=== PATIENT | female | born 1985 | race Caucasian/White ===

== ENCOUNTER 2017-04-11 16:12 | Emergency (ER) | payer BC ==
[2017-04-11 16:25] VITALS: BP 132/75
[2017-04-11] MEDS ORDERED: Albuterol 2.5 MG/3 ML NEB.SOL* (0.083%) INH ONE (16:42)
[2017-04-11] MEDS ORDERED: Ipratropium 0.5MG/2.5ML NEB* 0.5 MG/2.5 ML NEB.SOLN INH ONE (16:42)
[2017-04-11] MEDS ORDERED: predniSONE TAB* 20 MG PO ONE (16:43)
--- NOTE | 2017-04-11 17:25 | UC ---
Respiratory Complaint HPI - HPI Summary HPI Summary: 32 yo femalw with cough/wheezing x one month no f/c no n/v no myalgias - History of Current Complaint Chief Complaint: UCGeneralIllness Stated Complaint: COUGH,ASTHMA Time Seen by Provider: 04/11/17 16:38 Hx Last Menstrual Period: now Onset/Duration: Gradual Onset, Lasting Weeks Timing: Constant Severity Initially: Mild Severity Currently: Moderate Pain Intensity: 0 Pain Scale Used: 0-10 Numeric Character: Cough: Nonproductive Aggravating Factors: Nothing Alleviating Factors: Nothing Associated Signs And Symptoms: Positive: Wheezing - Allergies/Home Medications Allergies/Adverse Reactions: Allergies Allergy/AdvReac Type Severity Reaction Status Date / Time No Known Allergies Allergy Verified 04/11/17 16:25 Home Medications: Home Medications Albuterol 2.5MG/3ML (0.083%)* [Ventolin 2.5 MG/3 ML NEB.AMTEO*] 2.5 mg PO Q4H PRN 04/11/17 [History Confirmed 04/11/17] Albuterol HFA INHALER* [Ventolin HFA Inhaler*] 1 puff PO Q4H PRN 04/11/17 [ History Confirmed 04/11/17] Budesonide/Formote 80/4.5(NF) [Symbicort 80/4.5 (NF)] 1 aer PO Q6H PRN 04/11/17 [History Confirmed 04/11/17] PMH/Surg Hx/FS Hx/Imm Hx Previously Healthy: Yes Respiratory History: Asthma, Bronchitis, Pneumonia - Surgical History Surgical History: None - Family History Known Family History: Positive: Hypertension - Social History Alcohol Use: Occasionally Substance Use Type: None Smoking Status (MU): Never Smoked Tobacco Review of Systems Constitutional: Negative Skin: Negative Eyes: Negative ENT: Nasal Discharge, Sinus Congestion Respiratory: Shortness Of Breath, Cough Cardiovascular: Negative Gastrointestinal: Negative Genitourinary: Negative Motor: Negative Neurovascular: Negative Musculoskeletal: Negative Neurological: Negative Psychological: Negative Is Patient Immunocompromised?: No All Other Systems Reviewed And Are Negative: Yes Physical Exam Triage Information Reviewed: Yes Appearance: Well-Appearing, No Pain Distress, Well-Nourished Vital Signs: Initial Vital Signs Temp 99.3 F 04/11/17 16:14 Pulse 80 04/11/17 16:14 Resp 20 04/11/17 16:14 BP 132/75 04/11/17 16:14 Pulse Ox 100 04/11/17 16:14 Vital Signs Reviewed: Yes Eyes: Positive: Conjunctiva Clear ENT: Positive: Hearing grossly normal, TMs normal, Sinus tenderness. Negative: Nasal congestion, Nasal drainage, Tonsillar swelling, Tonsillar exudate, Trismus , Muffled voice, Hoarse voice, Uvula midline Neck: Positive: Supple, Nontender, No Lymphadenopathy Respiratory: Positive: No respiratory distress, No accessory muscle use, Wheezing Musculoskeletal: Positive: ROM Intact, No Edema Neurological: Positive: Alert Psychological Exam: Normal Skin Exam: Normal Diagnostic Evaluation - Laboratory O2 Sat by Pulse Oximetry: 100 - normal/not hypoxic Re-Evaluation - Re-Evaluation First Eval Re-Evaluation Time: 17:33 Change: Improved - lungs clear Respiratory Course/Dx - Differential Dx/Diagnosis Provider Diagnoses: acute bronchitis with bronchospasm Discharge - Discharge Plan Condition: Stable Disposition: HOME Prescriptions: Albuterol 2.5MG/3ML (0.083%)* [Ventolin 2.5 MG/3 ML NEB.MATEO*] 2.5 mg INH QID PRN #1 neb.mateo PRN Reason: Wheezing Albuterol HFA INHALER* [Ventolin HFA Inhaler*] 2 puff INH QID #1 mdi Amoxicillin/Clavulanate TAB* [Augmentin TAB 875*] 875 mg PO BID #14 tab Budesonide/Formote 80/4.5(NF) [Symbicort 80/4.5 (NF)] 1 puff INH BID #1 mdi Fluconazole 150 MG (NF) [Diflucan 150 mg (NF)] 150 mg PO ONCE #2 tab Prednisone [Deltasone] 40 mg PO DAILY #10 tab Patient Education Materials: Acute Bronchitis (ED), Bronchospasm (ED) [place]: [facility] [place] [facility] [place]] - As Soon As Possible Additional Instructions: recheck ifnot better in 4-5 day sooner if symptoms worsen
== END 2017-04-11 17:51 | disposition home or self-care (01) ==
LOC: UCEAST 16:12
DX: J20.9 Acute bronchitis, unspecified (principal)
CPT/HCPCS: 99202; G0463; J7512; J7644

== ENCOUNTER 2017-06-05 08:57 | Emergency (ER) | payer BC ==
[2017-06-05 09:05] VITALS: BP 116/70
--- NOTE | 2017-06-05 14:35 | UC ---
Bradley Khalil Jennifer, scribed for Vicenta Castro MD on 06/05/17 at 0929 . Throat Pain/Nasal Chun HPI - HPI Summary HPI Summary: The patient is a 32 year old female who presents with a sore throat that began yesterday morning. The patient reports she had a fever and was vomiting all night. She tried to take Tylenol but vomited that up. The patient additionally complains of difficulty swallowing. + myalgias. No rash. - History of Current Complaint Chief Complaint: UCRespiratory Stated Complaint: THROAT PAIN Time Seen by Provider: 06/05/17 09:19 Hx Obtained From: Patient Hx Last Menstrual Period: now Onset/Duration: Sudden Onset, Lasting Days - one day, Still Present Severity: Severe Pain Intensity: 10 Pain Scale Used: 0-10 Numeric Cough: None Associated Signs & Symptoms: Positive: Other - Sore throat, difficulty swelling , vomiting, fever, lower back pain - Allergies/Home Medications Allergies/Adverse Reactions: Allergies Allergy/AdvReac Type Severity Reaction Status Date / Time No Known Allergies Allergy Verified 06/05/17 09:04 PMH/Surg Hx/FS Hx/Imm Hx Previously Healthy: Yes - NEG: HTN, DM - Surgical History Surgical History: None - Family History Known Family History: Positive: Hypertension, Diabetes - Social History Alcohol Use: Rare Substance Use Type: None Smoking Status (MU): Never Smoked Tobacco Review of Systems Constitutional: Fever Eyes: Negative ENT: Sore Throat, Other - Difficulty swallowing Respiratory: Negative Cardiovascular: Negative Gastrointestinal: Vomiting Genitourinary: Negative Motor: Negative Neurovascular: Negative Musculoskeletal: Myalgia - Lower back pain Neurological: Negative Psychological: Negative Is Patient Immunocompromised?: No All Other Systems Reviewed And Are Negative: Yes Physical Exam - Summary Physical Exam Summary: Appearance: Well-Nourished Eye Exam: Normal ENT Exam: Tonsils are erythematous. Exudate bilaterally, uvula midline. Respiratory Exam: Normal, no dyspnea, no tachypnea, normal respiratory rate Chest non-tender, Lungs clear, Normal breath sounds, No respiratory distress, No accessory muscle use Cardiovascular Exam: Normal Cardiovascular: Heart rate regular, good general skin color, good capillary refill Abdominal Exam: Normal Abdomen Description: Nontender, No Organomegaly, Soft Bowel Sounds: Present Musculoskeletal Exam: Normal Musculoskeletal: Strength Intact Neurological Exam: Normal: non-focal, grossly intact Psychological Exam: Normal: conversing easily and appropriately Skin Exam: Normal: no visible or reported rash. Nondiaphoretic. Triage Information Reviewed: Yes Appearance: Well-Nourished - sitting up. Looks tired. NAD. Vital Signs: Initial Vital Signs Temp 99.0 F 06/05/17 09:02 Pulse 114 06/05/17 09:02 Resp 18 06/05/17 09:02 BP 116/70 06/05/17 09:02 Pulse Ox 97 06/05/17 09:02 Vital Signs Reviewed: Yes ENT Exam: Other - see above Neck exam: Normal Neck: Positive: Supple, Nontender, No Lymphadenopathy Respiratory Exam: Normal Respiratory: Positive: Chest non-tender, Lungs clear, Normal breath sounds, No respiratory distress Cardiovascular Exam: Normal Cardiovascular: Positive: RRR, No Murmur, Pulses Normal, Brisk Capillary Refill Abdominal Exam: Normal Abdomen Description: Positive: Nontender Musculoskeletal Exam: Normal - gait steady. Moves x 4 ext's. Throat Pain/Nasal Course/Dx - Course Course Of Treatment: + strep. D/w MsNilda Brooks coa / tx plan. Questions as posed answered to the best of my ability. - Differential Dx/Diagnosis Provider Diagnoses: Strep throat (tonsillitis) Discharge - Discharge Plan Condition: Stable Disposition: HOME Prescriptions: Amoxicillin/Clavulanate TAB* [Augmentin TAB 875*] 875 mg PO BID #20 tab Fluconazole [Diflucan 150 MG (NF)] 150 mg PO DAILY #2 tab Ondansetron ODT TAB* [Zofran 4 MG Odt TAB*] 4 mg PO Q8H PRN #16 tab.odt PRN Reason: Nausea Patient Education Materials: Strep Throat (ED) Forms: *Work Release Referrals: Liban Garcia MD [Medical Doctor] - Additional Instructions: Follow up with a primary care physician, per routine. Please seek medical attention for worse or new problems in the meantime Drink plenty of fluids. . The documentation as recorded by the Bradley nix Jennifer accurately reflects the service I personally performed and the decisions made by me, Vicenta Castro MD.
== END 2017-06-05 09:38 | disposition home or self-care (01) ==
LOC: UCEAST 08:57
DX: J02.0 Streptococcal pharyngitis (principal); M54.5 Low back pain
CPT/HCPCS: 87651; 99212; G0463

== ENCOUNTER 2018-11-28 16:27 | Emergency (ER) | payer BC ==
[2018-11-28 16:54] VITALS: BP 111/73
--- NOTE | 2018-11-28 17:24 | UC ---
UC General HPI - HPI Summary HPI Summary: 33-year-old female presents with 2 separate unrelated complaints. Her first complaint is for a 2 day history of headache, sinus pressure, nasal congestion, postnasal drip, bilateral ear fullness, and mild sore throat. Has not taken any fajx-[id number] medications to treat symptoms. History of asthma however has not needed to use her rescue inhaler/nebulizer. Denies fever, chills, dysphagia, cough, chest pain, shortness of breath, or wheezing. Patient's second complaint is for 5 days of dysuria, frequency, and urgency. Denies abdominal pain, back or flank pain, hematuria, vaginal discharge, abnormal bleeding, or dyspareunia. - History of Current Complaint Chief Complaint: UCGU Stated Complaint: SINUS COMPLAINT, UTI Time Seen by Provider: 11/28/18 16:38 Hx Obtained From: Patient Hx Last Menstrual Period: pt does not have them on BC Pain Intensity: 8 - Allergy/Home Medications Allergies/Adverse Reactions: Allergies Allergy/AdvReac Type Severity Reaction Status Date / Time No Known Allergies Allergy Verified 11/28/18 16:54 Home Medications: Home Medications metroNIDAZOLE [Metronidazole 0.75 % gel] 1 applic VAGINAL DAILY 11/28/18 [ History Confirmed 11/28/18] PMH/Surg Hx/FS Hx/Imm Hx Previously Healthy: Yes Respiratory History: Asthma - Surgical History Surgical History: None - Family History Known Family History: Positive: Hypertension, Diabetes, Non-Contributory - Social History Occupation: Employed Full-time Lives: Alone Alcohol Use: None Substance Use Type: None Smoking Status (MU): Never Smoked Tobacco Review of Systems All Other Systems Reviewed And Are Negative: Yes Constitutional: Negative: Fever, Chills Eyes: Negative: Drainage, Eye Redness ENT: Positive: Sore Throat, Ear Ache, Nasal Discharge, Sinus Congestion, Sinus Pain/Tenderness Respiratory: Negative: Shortness Of Breath, Cough Cardiovascular: Negative: Chest Pain Gastrointestinal: Negative: Abdominal Pain, Vomiting, Nausea Genitourinary: Positive: Dysuria, Frequency, Urgency. Negative: Hematuria, Vaginal/Penile Discharge, Ulceration/Lesion, Abnormal Bleeding Musculoskeletal: Positive: Negative Neurological: Positive: Negative Is Patient Immunocompromised?: No Physical Exam - Summary Physical Exam Summary: GENERAL APPEARANCE: Well developed, well nourished, alert and cooperative, and appears to be in no acute distress. EYES: Conjunctiva clear. No drainage. EARS: External auditory canals and tympanic membranes clear, hearing grossly intact. NOSE: Moderate nasal congestion with mucosal erythema and edema. No nasal discharge. Bilateral maxillary sinus tenderness. THROAT: Pharyngeal cobblestoning. No tonsilar inflammation, swelling, exudate, or lesions. Uvula midline. NECK: Neck supple, non-tender without lymphadenopathy. CARDIAC: Normal S1 and S2. No S3, S4 or murmurs. Rhythm is regular. There is no peripheral edema, cyanosis or pallor. Extremities are warm and well perfused. Capillary refill is less than 2 seconds. Peripheral pulses intact. LUNGS: Clear to auscultation without rales, rhonchi, wheezing or diminished breath sounds. ABDOMEN: Positive bowel sounds. Soft, nondistended, nontender. No guarding or rebound. No masses or hepatosplenomegally. No CVA tenderness. MUSKULOSKELETAL: ROM intact to all extremities. No joint erythema or tenderness. Normal muscular development. Normal gait. SKIN: Skin normal color, texture and turgor with no lesions or eruptions. Triage Information Reviewed: Yes Vital Signs: Initial Vital Signs Temp 98.8 F 11/28/18 16:45 Pulse 88 11/28/18 16:45 Resp 18 11/28/18 16:45 BP 111/73 11/28/18 16:45 Pulse Ox 98 11/28/18 16:45 Vital Signs Reviewed: Yes Course/Dx - Course Course Of Treatment: 33-year-old female presents with 2 separate unrelated complaints. Her first complaint is for a 2 day history of headache, sinus pressure, nasal congestion, postnasal drip, bilateral ear fullness, and mild sore throat. Has not taken any cyrz-znj-[id number] medications to treat symptoms. History of asthma however has not needed to use her rescue inhaler/nebulizer. Denies fever, chills, dysphagia, cough, chest pain, shortness of breath, or wheezing. Patient's second complaint is for 5 days of dysuria, frequency, and urgency. Denies abdominal pain, back or flank pain, hematuria, vaginal discharge, abnormal bleeding, or dyspareunia. Afebrile. Vital signs stable. Patient had moderate nasal congestion with mucosal erythema and edema, maxillary sinus tenderness, pharyngeal cobblestoning without tonsillar swelling or exudate, clear bilateral breath sounds, nontender abdomen, no CVA tenderness, and otherwise unremarkable exam. [id number] urinalysis showed 1+ leukocyte esterase, 2+ blood, and 1+ protein. Urine culture is pending. Reviewed results with the patient. We discussed that without fever and considering the duration of her symptoms she likely has a viral upper respiratory infection and recommending symptomatic treatment at this time. Based on her urinary symptoms and urinalysis results we will treat her empirically for a urinary tract infection with Bactrim DS 1 tablet twice daily 5 days as well as provide her with Pyridium 100 mg 3 times a day 2 days to help with discomfort. She is to follow-up with her primary care provider or return here if symptoms persist. Anticipatory guidance and warning symptoms were reviewed with the patient. Verbalizes understanding and agrees with plan of care. - Diagnoses Provider Diagnosis: Viral URI, UTI (urinary tract infection) Discharge ED - Sign-Out/Discharge Documenting (check all that apply): Patient Departure All imaging exams completed and their final reports reviewed: No Studies - Discharge Plan Condition: Stable Disposition: HOME Prescriptions: Phenazopyridine TAB* [Pyridium 100 mg TAB*] 100 mg PO TID #6 tab Sulfamethox/Trimethoprim DS* [Bactrim DS 800/160 TAB*] 1 tab PO BID #10 tab Patient Education Materials: Urinary Tract Infection in Women (ED), Upper Respiratory Infection (ED) Referrals: Liban Garcia MD [Primary Care Provider] - 3 Days Additional Instructions: Your history and exam are consistent with a viral upper respiratory infection. Viral infections do not respond to antibiotics and are limited to the treatment of symptoms. Viral infections typically run their course in 7-10 days. Drink plenty of fluids to avoid dehydration especially if you are running any fever. Use a saline rinse kit such as Neti Pot or NeilMed at least twice a day to help thin secretions and promote drainage of the sinuses. Use fluticasone (Flonase) nasal spray 2 sprays each nostril once daily. Use an over the counter decongestant such as Sudafed according to directions to help with the congestion. Take over the counter acetaminophen (Tylenol) or ibuprofen (Advil, Motrin) according to directions as needed for pain or fever. Use salt water gargles several times a day if you have a sore throat. You may also use Chloraseptic spray or Cepacol lonzenges according to directions which contain a numbing medication and can provide some temporary relief from your sore throat. Follow up with your primary care provider in 5-7 days if symptoms persist. Seek immediate medical attention in the emergency room if you have fever greater than 100.5 F despite taking acetaminophen or ibuprofen, have chest pain , difficulty breathing, are unable to swallow, or have any worsening of symptoms. Your urine test in the clinic today is suggestive of a urinary tract infection. We will start you on an antibiotic to treat for the infection. We will also send a urine culture today to see what bacteria grow out and make sure the antibiotic you were prescribed is appropriate to treat the infection. It will take 48-72 hours to get these results. We will contact you if there is any change in your treatment plan. Start Bactrim DS 1 tab twice a day for 5 days. Take Pyridium 1 tablet every 8 hours for next 2 days to help with the discomfort. This medication will turn your urine an orange color. Drink plenty of fluids. To help prevent urinary tract infections: 1) Be sure to wipe from front to back. 2) Urinate immediately after any sexual intercourse. 3) Avoid taking bubble baths. Follow up with your primary care provider in 3-5 days if symptoms persist. Seek immediate medical attention in the emergency room if you develop fever greater than 100.5 F, have severe abdominal pain, persistent vomiting, or any worsening of symptoms. - Billing Disposition and Condition Condition: STABLE Disposition: Home
== END 2018-11-28 17:38 | disposition home or self-care (01) ==
LOC: UCEAST 16:27
DX: J06.9 Acute upper respiratory infection, unspecified (principal); N39.0 Urinary tract infection, site not specified; J45.909 Unspecified asthma, uncomplicated
CPT/HCPCS: 81003; 87077; 87086; 87186; 99212; G0463

== ENCOUNTER 2018-12-02 16:21 | Emergency (ER) | payer BC ==
[2018-12-02 16:41] VITALS: BP 130/73
--- NOTE | 2018-12-02 17:02 | UC ---
Complaint Female HPI - HPI Summary HPI Summary: 33 y/o female presents to the urgent care c/o frequency and burning on urination despite taken Bactrim PO and Pyridiun PO that was Rx here at the clinic on 11/28/2018. Her URI symptoms have improved, but not her UTI. Pt states she finished Bactrim today and still has a lot irritation and burning on urination. LMP: 09/2018 on OCP. Pt reports Hx of Chronic BV for which she uses Metrogel applicators Rx by her [facility] since last year. Pain w/ urination is 7/10. States mild vaginal discharge, but she thinks it is probably her BV. Her Chronic BV started last years when she gained so much weight and this has been a constant stress in her sexual life. Pt denies fever, lower back pain, flank pain, abdominal pain, Hx of STD's NASSAR, dizziness, rash. - History Of Current Complaint Chief Complaint: UCGU Stated Complaint: BURNING URINATION Time Seen by Provider: 12/02/18 16:43 Hx Obtained From: Patient Hx Last Menstrual Period: pt does not have them on BC ?: No Onset/Duration: Gradual Onset, Lasting Days - 9 days, Still Present Timing: Intermittent, Lasting Seconds Severity Initially: Moderate Severity Currently: Moderate Pain Intensity: 7 Pain Scale Used: 0-10 Numeric Character: Burning Aggravating Factor(s): Urination Alleviating Factor(s): Other - Taking Bactrim which was Rx on 11/28/2018 w/o any improvement - Allergies/Home Medications Allergies/Adverse Reactions: Allergies Allergy/AdvReac Type Severity Reaction Status Date / Time No Known Allergies Allergy Verified 12/02/18 16:41 PMH/Surg Hx/FS Hx/Imm Hx Previously Healthy: Yes Respiratory History: Asthma Other GI/ History: chronic BV - Surgical History Surgical History: None - Family History Known Family History: Positive: Hypertension, Diabetes, Non-Contributory - Social History Occupation: Employed Full-time Lives: With Family Alcohol Use: None Substance Use Type: None Smoking Status (MU): Never Smoked Tobacco Review of Systems All Other Systems Reviewed And Are Negative: Yes Constitutional: Positive: Negative Skin: Positive: Negative Eyes: Positive: Negative ENT: Positive: Negative Respiratory: Positive: Negative Cardiovascular: Positive: Negative Gastrointestinal: Positive: Negative Genitourinary: Positive: Dysuria, Frequency, Urgency, Vaginal/Penile Burning, Vaginal/Penile Discharge Motor: Positive: Negative Neurovascular: Positive: Negative Musculoskeletal: Positive: Negative Neurological: Positive: Negative Psychological: Positive: Negative Is Patient Immunocompromised?: No Physical Exam - Summary Physical Exam Summary: Vital signs: reviewed General: well developed, well nourished obese female sitting in the examining table w/o any acute distress. Head: Normocephalic, no lesions. Eyes: PERRLA, EOM's full, conjunctiva clear, fundi grossly normal. Ears: EAC's clear, TM's normal. Nose: Mucosa normal, no obstruction. Throat: Clear, no exudates, no lesions. Neck: Supple, no masses, no thyromegaly, no bruits. Chest: Lungs clear, no rales, no rhonchi, no wheezes. Heart: RR, no murmurs, no rubs, no gallops. Abdomen: Soft, no tenderness, no masses, BS normal. Pelvic: I was still operator gin by Nurse Isiah. External genitalia within normal limits. There is mild erythema on both labia majora,no vesicles or drainage, no masses noted. Speculum exam: The vaginal cancino are within normal limits w/ white cottage cheese vaginal discharge, no lesions or rashes. The cervix is closed with no lesions or masses. There is no CMT's, and no adnexal masses. Sample sent to Lab for Affirm panel. Rectal: No lesions, no hemorrhoids, Back: Normal curvature, no tenderness. Extremities: FROM, no deformities, no edema, no erythema. Neuro: Physiological, no localizing findings. Skin: Normal, no rashes, no lesions noted. Triage Information Reviewed: Yes Vital Signs: Initial Vital Signs Temp 98.6 F 12/02/18 16:37 Pulse 88 12/02/18 16:37 Resp 18 12/02/18 16:37 BP 130/73 12/02/18 16:37 Pulse Ox 100 12/02/18 16:37 Complaint Female Dx - Course Course Of Treatment: 33 y/o female presents to the urgent care c/o frequency and burning on urination despite taken Bactrim PO and Pyridiun PO that was Rx here at the clinic on 11/28/2018. Her URI symptoms have improved, but not her UTI. Pt states she finished Bactrim today and still has a lot irritation and burning on urination. LMP: 09/2018 on OCP. Pt reports Hx of Chronic BV for which she uses Metrogel applicators Rx by her [facility] [facility] since last year. Pain w/ urination is 7/10. States mild vaginal discharge, but she thinks it is probably her BV. Her Chronic BV started last years when she gained so much weight and this has been a constant stress in her sexual life. Pt denies fever, lower back pain, flank pain, abdominal pain, Hx of STD's NASSAR, dizziness, rash. Hx obtained. PE: WNL. I was still operator gin by Nurse Isiah forpelvic exam. Pt w/ a white cottage cheese vaginal discharge and vulva w/ erythema on pelvic examination. UA and test ordered. UA results: Blood 1+, Leukoesterase trace. Pt w/ probably Vulvovaginal candidiasis. Urine culture on 11/28/2018 was Positive for E.Coli and was Rx Bactrim which showed good sensitivity for E.Coli, However Pt still symptomatic. Urine sent to lab for another urine culture to confirm UTI since aI think Pt's symptoms are due to her chronic BV and possible solis due to taking antibiotics. Pt requested antibiotics for possible UTI. PT Rx Keflex PO , but advised to start ir only if culture returned positive. Pt will be notified of results. PT also Rx Fluconazole 150mg PO. and Miconazole topical cream to alleviate symptoms. Sample sent to Lab for Affirm panel to r/o any abnormality. pt will be notified of result. Pt strongly advised to f/u w/ [facility] DR Best or her [facility] for further management in her chronic BV and symptoms. D/C instrucitons explained. Pt understood and agreed with plan of care. - Differential Dx/Diagnosis Differential Diagnosis/HQI/PQRI: Cervicitis, Pelvic Inflammatory Disease, , Renal Colic, Sexually Transmitted Disease, Urinary Tract Infection Provider Diagnosis: Vulvovaginal candidiasis, UTI (urinary tract infection) Discharge ED - Sign-Out/Discharge Documenting (check all that apply): Patient Departure - D/C home All imaging exams completed and their final reports reviewed: No Studies - Discharge Plan Condition: Stable Disposition: HOME Prescriptions: Cephalexin CAP* [Keflex CAP*] 500 mg PO BID PC #14 cap Fluconazole 150 MG TAB* [Diflucan 150 MG TAB*] 150 mg PO ONCE #1 tablet Miconazole TOPICAL CREAM 2%* [Monistat 2%*] 1 applic TOPICAL BID #1 tube Patient Education Materials: Urinary Tract Infection in Women (ED), Yeast Infection (ED) Referrals: Liban Garcia MD [Primary Care Provider] - 3 Days Eleni Curtis MD [Medical Doctor] - 3 Days Additional Instructions: 1-Please f/u with [facility] Dr Curtis or your [facility] for a PAP and further management in your chronic BV 2- Please take Fluconazole PO and apply Miconazole topical cream as directed to alleviate possible yeast infection. Affirm was sent to lab for confirmation. You will be notified of any abnormality. If swabs return positive for BV you can start using the Metrogel applicator you have at home qhs x 5 days. 3- Urine culture ordered and sent to lab to r/o UTI. If urine culture returns positive, please start taken Keflex PO that was sent to the pharmacy. Increase fluid intake and avoid sexual intercourse until symptoms resolve. - Billing Disposition and Condition Condition: STABLE Disposition: Home
--- NOTE | 2018-12-04 06:55 | UC ---
- Progress Note Progress Note: please notify pt no UTI stop keflex Course/Dx - Diagnoses Provider Diagnoses: Vulvovaginal candidiasis, UTI (urinary tract infection) Discharge ED - Sign-Out/Discharge Documenting (check all that apply): Post-Discharge Follow Up All imaging exams completed and their final reports reviewed: No Studies - Discharge Plan Condition: Stable Disposition: HOME Prescriptions: Cephalexin CAP* [Keflex CAP*] 500 mg PO BID PC #14 cap Fluconazole 150 MG TAB* [Diflucan 150 MG TAB*] 150 mg PO ONCE #1 tablet Miconazole TOPICAL CREAM 2%* [Monistat 2%*] 1 applic TOPICAL BID #1 tube Patient Education Materials: Urinary Tract Infection in Women (ED), Yeast Infection (ED) Referrals: Eleni Curtis MD [Medical Doctor] - 3 Days Liban Garcia MD [Primary Care Provider] - 3 Days Additional Instructions: 1-Please f/u with [facility] Dr Curtis or your [facility] for a PAP and further management in your chronic BV 2- Please take Fluconazole PO and apply Miconazole topical cream as directed to alleviate possible yeast infection. Affirm was sent to lab for confirmation. You will be notified of any abnormality. If swabs return positive for BV you can start using the Metrogel applicator you have at home qhs x 5 days. 3- Urine culture ordered and sent to lab to r/o UTI. If urine culture returns positive, please start taken Keflex PO that was sent to the pharmacy. Increase fluid intake and avoid sexual intercourse until symptoms resolve. - Billing Disposition and Condition Condition: STABLE Disposition: Home
== END 2018-12-02 18:11 | disposition home or self-care (01) ==
LOC: UCEAST 16:21
DX: B37.3 Candidiasis of vulva and vagina (principal); J45.909 Unspecified asthma, uncomplicated
CPT/HCPCS: 81003; 87086; 87480; 87510; 99212; G0463

== ENCOUNTER 2019-03-22 11:22 | Emergency (ER) | payer BC, OTHER ==
[2019-03-22 11:33] VITALS: BP 134/92
--- NOTE | 2019-03-22 11:54 | UC ---
General HPI - HPI Summary HPI Summary: Patient presents for evaluation of acute skin changes. Patient with 2 areas affected 1) . Patient states she woke up at 5 this morning and noticed that she had some edema and discomfort on the right frontal part of her forehead. Patient also with several small blister areas on her nose. Patient states they is mild burning. States he felt swollen. Patient does report some mild itching. No vision changes. No eye pain. No eye drainage. Patient states she has little bit of itching on her scalp on the right side as well. Patient without a history of similar. Patient never had shingles. Patient is not immunocompromised 2) patient also states she's had some edema and discomfort in her right thumb. Patient states become a little bit more red as it is progress. Patient does have good range of motion in her right, dominant thumb but states it feels a little stiff related to swelling. Patient did apply ice pack to her for his bottles with him with some mild improvement. Patient to take Motrin this morning which helped her discomfort. No trauma. Patient without a history of gout. Patient states in the past she's had "spider bites" that causes little blisters that she noticed on her nose. Patient has also had problems with cellulitis. Patient is not immunocompromised. 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 Patient has had cellulitis in the past. Patient medications as entered in the EMR by triage nurse were reviewed. Patient states she is not . I - History of Current Complaint Chief Complaint: Nallely Stated Complaint: ALLERGIC REACTION Time Seen by Provider: 03/22/19 11:49 Hx Last Menstrual Period: MAR 17, 2019 Pain Intensity: 0 - Allergy/Home Medications Allergies/Adverse Reactions: Allergies Allergy/AdvReac Type Severity Reaction Status Date / Time No Known Allergies Allergy Verified 12/02/18 16:41 Home Medications: Home Medications Fluticasone/Vilanterol MDI(NF) [Breo Ellipta MDI (NF)] 1 puff INH DAILY [History Confirmed 03/22/19] PMH/Surg Hx/FS Hx/Imm Hx Previously Healthy: Yes - Surgical History Surgical History: None - Family History Known Family History: Positive: Hypertension, Diabetes, Non-Contributory - Social History Occupation: Employed Full-time - medical assistance, 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 EOM intact and full ENT: Hearing grossly normal TM x 2 clear, turbinates wnl, mmoist, uvula midline , no exudate, no erythema Neck: Positive: Supple Respiratory: Positive: No respiratory distress, No accessory muscle use + CTA throughout no w/r Cardiovascular: RRR nl s1, s2 no m/r CBT <2 sec abd soft + BS nt/nd no guarding, no distension Musculoskeletal Exam: RUE: + flex/ext elbow, + pronate/supinate + flex/ext wrist + thumb up, a ok, finger cross + flex/ext mcp, IP Neurological: Positive: Alert, + sensation throughout Psychological: Positive: Normal Response To examiner Skin: Positive: Pt with mild erythema, edema right frontal area to nasal bridge Pt with small ( 4) clear vesicle lesions on nose no drainage. no tenderness. pt reports increased senitivity with gentle palpation frontal area and upper hairline right thumb, mild edema along prox phalynx with mild erythema dorsum of mcp with ext to dorsum hand. no open wounds, no vesicles Triage Information Reviewed: Yes Vital Signs: Initial Vital Signs Temp 98.1 F 03/22/19 11:28 Pulse 81 03/22/19 11:28 Resp 18 03/22/19 11:28 BP 134/92 03/22/19 11:28 Pulse Ox 97 03/22/19 11:28 Course/Dx - Course Course Of Treatment: Patient presents to urgent care 2 complaints. One, patient states has progressed and some mild edema on the right frontal area as well as some hyper per sensitivity in this area. Patient also with some small vesicles that have developed on her nasal bridge. Patient denie fevers or chills. Mild erythema. Patient states had some itching earlier today. Patient apply cold pack to seem to help. Patient without lesions elsewhere. After long discussion discussed with patient concern this may represent an early shingles. We'll start patient on Valtrex as well as prednisone. 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 Patient understands if this is shingles concerned that involves the V1 dermatome and this examination was happened. His symptoms worsen she should emergency department. Second, with some erythema and edema on the right thumb. Patient denies trauma. Patient states she's had this in the past for cellulitis. Patient without a history of gout. Patient with good range of motion CSM. The patient patient in thumb spica she has some edema when arrested. We'll start on antibiotics. Discuss at length the patient unclear etiology of both of these rashes however I working differential. Patient stated understanding and agreement. Patient wishes she was department if her symptoms or anything else changes. Understanding and agreement with medication treatment plan. - Diagnoses Provider Diagnosis: Rash Discharge ED - Sign-Out/Discharge Documenting (check all that apply): Patient Departure All imaging exams completed and their final reports reviewed: No Studies - Discharge Plan Condition: Stable Disposition: HOME Prescriptions: predniSONE TAB* [Deltasone 20 MG TAB*] 20 mg PO DAILY #13 tab Sulfamethox/Trimethoprim DS* [Bactrim DS 800/160 TAB*] 1 tab PO BID #14 tab ValACYclovir (*) [Valtrex 1 GM(*)] 1 gm PO TID #21 tab Patient Education Materials: Acute Rash (ED) Forms: *Work Release Referrals: Harpreet Bermudez MD [Medical Doctor] - Liban Garcia MD [Primary Care Provider] - Additional Instructions: - As discussed, the doctors not clearly exact cause of your symptoms say. The doctor's concern that the spots on your forehead and nose may be related to early shingles. For this, he had been prescribed prednisone as well as Valtrex. His port type of his medications exactly as prescribed starting today. It is strongly recommended UR evaluated by an software licensing specialist to make sure there is no involvement of the eye. Call on Sunday for this appointment. - Regarding her hand, if possible this is related to early sialitis. You have been place in a thumb splint to help with swelling and pain. It is recommended to elevate her arm to help with swelling. It is okay to take Tylenol for pain. He also been given a course of antibiotics to take in case this does represent early infection. - Is recommended to avoid ibuprofen as this can make itching worse at any areas of the rash. It is also recommended to avoid getting overheated such as hot showers, hot tubs, vigorous exercise. Okay to put cool packs on areas if they become itchy. If you develop any difficulty breathing, swelling inside your mouth, feeling lightheaded, shortness of breath, or any other concerns recommended to go to the emergency department for further testing and evaluation. Contact your doctor or return with questions or concerns. - Billing Disposition and Condition Condition: STABLE Disposition: Home
== END 2019-03-22 12:20 | disposition home or self-care (01) ==
LOC: UCEAST 11:22
DX: R21 Rash and other nonspecific skin eruption (principal); R60.0 Localized edema
CPT/HCPCS: 99212; G0463

== ENCOUNTER 2019-03-27 07:16 | Emergency (ER) | payer OTHER ==
--- NOTE | 2019-03-27 07:19 | UC ---
General HPI - HPI Summary HPI Summary: 34 yo female c/o allergic type symptoms x approx 1 week. Seen in [facility] 5 days ago , started predninose taper, also valcyclovir (possible shingles) and bactrim ds (possible bacterial infection). Symptoms not better, last couple days c/o hives that come and go. + scratchy throat. + post nasal drip. Not sexually active. No recent travel. No fever / chills. Some cough d/t scratchy throat. Has albuterol at home, but not using. Has not taken antihistamine recently. - History of Current Complaint Stated Complaint: SOB Time Seen by Provider: 03/27/19 07:19 Hx Obtained From: Patient Hx Last Menstrual Period: MAR 17, 2019 - Allergy/Home Medications Allergies/Adverse Reactions: Allergies Allergy/AdvReac Type Severity Reaction Status Date / Time No Known Allergies Allergy Verified 03/27/19 07:40 PMH/Surg Hx/FS Hx/Imm Hx Previously Healthy: Yes - Surgical History Surgical History: None - Family History Known Family History: Positive: Hypertension, Diabetes, Non-Contributory - Social History Alcohol Use: Rare Substance Use Type: None Smoking Status (MU): Never Smoked Tobacco Review of Systems All Other Systems Reviewed And Are Negative: Yes Constitutional: Positive: Chills, Fatigue Skin: Positive: Rash Eyes: Positive: Negative ENT: Positive: Other - see hpi Respiratory: Positive: Cough - see hpi Cardiovascular: Positive: Negative Gastrointestinal: Positive: Other - see hpi Genitourinary: Positive: Negative Motor: Positive: Negative Neurovascular: Positive: Negative Musculoskeletal: Positive: Negative Neurological: Positive: Negative Psychological: Positive: Negative Is Patient Immunocompromised?: No Physical Exam Triage Information Reviewed: Yes Appearance: Well-Nourished, Other: - sitting up, conversing easily. scratchy throat / dry cough. Looks tired, but nad. nontoxic general appearance. Eye Exam: Normal - eyes a little watery ENT: Positive: Pharyngeal erythema - mild post pharyng redness, no sores / exudates. uvula midline. Lips a little dry, not swollen. Neck exam: Normal Neck: Positive: Supple, Nontender Respiratory Exam: Other - mild wheeze Respiratory: Positive: Chest non-tender, Lungs clear, No respiratory distress, No accessory muscle use Cardiovascular Exam: Normal Cardiovascular: Positive: RRR, No Murmur, Pulses Normal, Brisk Capillary Refill Abdominal Exam: Normal Abdomen Description: Positive: Nontender Musculoskeletal Exam: Normal - moves x exts Neurological Exam: Normal - grossly nonfocal Psychological Exam: Normal - nad Skin Exam: Other - nondiaphoretic. + scattered areas of urticarial-type redness over forearms, reports that this has been in several areas. Some raised areas (? bug bite) but not all. Course/Dx - Course Course Of Treatment: IVF's x 1 liter. Solumedrol. Duoneb. Benadryl. Pepcid. Better. Has rx active for albuterol neb and inhaler at home. Will start to use. Will restart prednisone taper (previously prescribed, still has medication in the bottle. Will stop bactrim ds. Doubt inciting cause, but clinically no longer needed right now, could be a contributing issue. Reviewed coa / tx plan. Questions as posed answered to the best of my ability. - Diagnoses Provider Diagnosis: Allergy, Bronchospasm Discharge ED - Sign-Out/Discharge Documenting (check all that apply): Patient Departure All imaging exams completed and their final reports reviewed: No Studies - Discharge Plan Condition: Stable Disposition: HOME Prescriptions: Famotidine TAB* [Pepcid 20 MG TAB*] 20 mg PO DAILY #20 tab Patient Education Materials: Bronchospasm (ED), General Allergic Reaction (ED) Forms: *Work Release Referrals: Liban Garcia MD [Primary Care Provider] - Additional Instructions: Please use your nebulizer and / or inhaler as directed (at the very least 2x / day for the next 3 days). Hydrate. Benadryl (antihistamine) - 25mg 2x / day for the next 3 days, and then as needed up to 4x / day. Pepcid once daily while you are having allergic symptoms. Prednisone - please taper it as instructed. Follow up with your primary care physician, call for appointment in the next couple days if possible. Stop Bactrim ds. Please go to the Emergency Department for worse or new problems. Blood work in the lab. - Billing Disposition and Condition Condition: STABLE Disposition: Home
[2019-03-27 07:39] VITALS: BP 120/81
[2019-03-27] MEDS ORDERED: diPHENhydraMINE IV* 50 MG/ML 1 ml VIAL (BENADRYL) IV ONE (07:45)
[2019-03-27] MEDS ORDERED: methylPREDNISolone 125 MG* 2 ML VIAL IV ONE (07:45)
[2019-03-27] MEDS ORDERED: NS 0.9% 1000 ML** 1,000 ML IV ONE (07:45)
[2019-03-27] MEDS ORDERED: Famotidine TAB* 20 MG PO ONE (07:46)
[2019-03-27] MEDS ORDERED: Albuterol/Ipratropium NEB.SOL* Albuterol 2.5 MG/Ipratropium 0.5 MG 3 ML INH ONE (07:48)
[2019-03-27 11:13] LABS: ABS Basophils 0.1 10^3/ul (0-0.2); ABS Eosinophils 0.1 10^3/ul (0-0.6); ABS Lymphocytes 2.7 10^3/ul (1.0-4.8); ABS Monocytes 0.5 10^3/ul (0-0.8); ABS Neutrophils 4.1 10^3/ul (1.5-7.7); Eosinophil % 1.3 %; Hematocrit 42 % (35-47); Hemoglobin 13.7 g/dL (12.0-16.0); Lymphocyte % 36.5 %; Mean Corpuscular HGB Conc 33 g/dL (31-36); Mean Corpuscular Hemoglobin 28 pg (27-31); Mean Corpuscular Volume 86 fL (80-97); Mean Platelet Volume 10.9 fL (7.4-10.4); Nucleated Red Blood Cells % 0.1; Platelet Count 319 10^3/uL (150-450); Red Blood Count 4.86 10^6 /uL (3.70-4.87); Red Cell Distribution Width 15 % (10-15); White Blood Count 7.5 10^3/uL (3.5-10.8)
[2019-03-27 11:20] LABS: Albumin 4.2 g/dL (3.2-5.2); CO2 Carbon Dioxide 28 mmol/L (22-32); Calcium 9.6 mg/dL (8.6-10.3); Chloride 101 mmol/L (101-111); Sodium 137 mmol/L (135-145)
[2019-03-27 11:26] LABS: ALT 15 U/L (7-52); Albumin/Globulin Ratio 1.6 (1-3); Alkaline Phosphatase 67 U/L (34-104); BUN/Creatinine Ratio 30.7 (8-20); Blood Urea Nitrogen 23 mg/dL (6-24); C Reactive Protein 7.39 mg/L (<8.01); EGFR African American 106.4 (>60); EGFR Non-African American 87.9 (>60); Globulin 2.6 g/dL (2-4); Glucose 110 mg/dL (70-100); Total Protein 6.8 g/dL (6.4-8.9)
[2019-03-27 11:28] LABS: Anion Gap 8 mmol/L (2-11)
[2019-03-27 13:13] LABS: Erythrocyte Sed Rate 11 mm/Hr (0-19)
== END 2019-03-27 10:26 | disposition home or self-care (01) ==
LOC: UCEAST 07:16
DX: T78.40XA Allergy, unspecified, initial encounter (principal); J98.01 Acute bronchospasm; R21 Rash and other nonspecific skin eruption; X58.XXXA Exposure to other specified factors, initial encounter
CPT/HCPCS: 36415; 80053; 85025; 85652; 86140; 86618; 87651; 96360; 96375; 96376; 99212; A9270-GY; G0463; J1200; J2930